=== PATIENT | female | born 1995 | race Caucasian/White ===

== ENCOUNTER 2018-04-29 23:22 | Emergency (ER) | payer SELFPAY ==
[~2018-04-29] VITALS: Ht 162.6 cm; Wt 55.0 kg
[~2018-04-29 23:22] MED LIST: ZOLP10TA PO
[2018-04-29] MEDS ORDERED: SULFAMETH./TRIMETHOPRIM DS 800MG/160MG TABLET ONE (23:48)
[2018-04-29] MEDS ORDERED: CEPHALEXIN 500 MG CAPSULE ONE (23:48)
[2018-04-30] MEDS ORDERED: CEPHALEXIN 500 MG CAPSULE PO ONE
[2018-04-30] MEDS ORDERED: SULFAMETH./TRIMETHOPRIM DS 800MG/160MG TABLET PO ONE
[2018-04-30 02:17] VITALS: BP 111/69
== END 2018-04-30 03:08 | disposition home or self-care (01) ==
LOC: ED 23:59
DX: L02.01 Cutaneous abscess of face (principal); Z87.891 Personal history of nicotine dependence
CPT/HCPCS: 76536; 99284

== ENCOUNTER 2018-09-22 02:53 | Emergency (ER) | payer MEDICAID ==
[~2018-09-22] VITALS: Ht 160 cm; Wt 49.2 kg
[2018-09-22 02:56] VITALS: BP 126/83
[2018-09-22] MEDS ORDERED: PROCHLORPERAZINE 10MG TABLET ONE (03:10)
[2018-09-22] MEDS ORDERED: SUMATRIPTAN 25 MG TABLET ONE (03:11)
[2018-09-22] MEDS ORDERED: SUMATRIPTAN 50 MG TABLET PO PRN (03:30)
[2018-09-22] MEDS ORDERED: PROCHLORPERAZINE 10MG TABLET PO ONE (03:30)
== END 2018-09-22 03:28 | disposition home or self-care (01) ==
LOC: ED 03:10
DX: G43.C1 Periodic headache syndromes in child or adult, intractable (principal); F17.200 Nicotine dependence, unspecified, uncomplicated; Z72.9 Problem related to lifestyle, unspecified
CPT/HCPCS: 99283; Q0164